=== PATIENT | female | born 2000 | race African-American/Black ===

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

== ENCOUNTER 2021-07-19 16:35 | Emergency (ER) | payer MEDICAID ==
[~2021-07-19] VITALS: Ht 162.6 cm; Wt 55.0 kg
[2021-07-19] MEDS ORDERED: SODIUM CHLORIDE 0.9% 1,000 ML IV ONE (16:45)
[2021-07-19] MEDS ORDERED: METOCLOPRAMIDE HCL 10MG/2ML VIAL IV STA (16:45)
[2021-07-19] MEDS ORDERED: KETOROLAC 30MG/ML VIAL IV STA (16:45)
[2021-07-19 16:58] VITALS: BP 130/70
[2021-07-19 17:30] LABS: BASOPHILS % 0.9 % (0.0-2.0); EOSINOPHILS % 10.1 % (0.0-5.0); HEMATOCRIT. 37.6 % (36.0-48.0); HEMOGLOBIN. 11.8 g/dL (12.0-16.0); LYMPHOCYTES % 46.8 % (20.0-50.0); MEAN CORPUSCULAR HEMOGLOBIN 26.3 pg (28.0-32.0); MEAN PLATELET VOLUME 9.3 fl (7.4-10.4); MONOCYTES % 12.4 % (2.0-8.0); NEUTROPHILS % 29.8 % (40.0-76.0); PLATELET 245 x1000/uL (130-400); RED BLOOD CELL COUNT 4.48 mill/uL (4.2-5.4); RED CELL DISTRIBUTION WIDTH 13.8 % (11.6-14.6)
[2021-07-19 17:36] LABS: CHLORIDE 104 mEq/L (98-107)
[2021-07-19 17:45] LABS: HCG SCREEN NEGATIVE
[2021-07-19 18:02] LABS: CLARITY URINE CLOUDY (CLEAR); COLOR URINE ORANGE (YELLOW); KETONES URINE NEGATIVE (NEGATIVE); LEUKOCYTE ESTERASE URINE 1+ (NEGATIVE); NITRITE URINE POSITIVE (NEGATIVE); OCCULT BLOOD URINE 1+ (NEGATIVE); PH URINE 6.5 (4.5-8.0); PROTEIN URINE 3+ (NEGATIVE); SPECIFIC GRAVITY URINE 1.024 (1.005-1.030)
[2021-07-19] MEDS ORDERED: IOHEXOL-300 100 ML BOTTLE ONE (19:04)
== END 2021-07-19 20:05 | disposition home or self-care (01) ==
LOC: ER 16:35
DX: N39.0 Urinary tract infection, site not specified (principal); Z87.442 Personal history of urinary calculi
CPT/HCPCS: 36415; 74177; 76830; 76856; 80053; 81003; 83690; 84703; 85025; 96374; 96375; 99285; J1885; J2765; J7030; Q9967

== ENCOUNTER 2021-07-30 14:12 | Emergency (ER) | payer MEDICAID, OTHER ==
[~2021-07-30] VITALS: Ht 162.6 cm; Wt 53.0 kg
[2021-07-30 14:46] LABS: BASOPHILS % 1.3 % (0.0-2.0); EOSINOPHILS % 9.8 % (0.0-5.0); HEMATOCRIT. 35.9 % (36.0-48.0); HEMOGLOBIN. 11.6 g/dL (12.0-16.0); LYMPHOCYTES % 34.1 % (20.0-50.0); MEAN CORPUSCULAR HEMOGLOBIN 26.9 pg (28.0-32.0); MEAN CORPUSCULAR VOLUME 83.2 fL (81.0-99.0); MEAN PLATELET VOLUME 9.2 fl (7.4-10.4); MONOCYTES % 13.5 % (2.0-8.0); NEUTROPHILS % 41.3 % (40.0-76.0); PLATELET 310 x1000/uL (130-400); RED BLOOD CELL COUNT 4.31 mill/uL (4.2-5.4); RED CELL DISTRIBUTION WIDTH 14.6 % (11.6-14.6)
[2021-07-30 14:54] LABS: CHLORIDE 107 mEq/L (98-107)
[2021-07-30 15:19] LABS: CLARITY URINE CLEAR (CLEAR); COLOR URINE YELLOW (YELLOW); KETONES URINE NEGATIVE (NEGATIVE); LEUKOCYTE ESTERASE URINE NEGATIVE (NEGATIVE); NITRITE URINE NEGATIVE (NEGATIVE); OCCULT BLOOD URINE NEGATIVE (NEGATIVE); PH URINE 7.5 (4.5-8.0); PROTEIN URINE NEGATIVE (NEGATIVE); UROBILINOGEN URINE 0.2 E.U./dL (0.2-1.0)
[2021-07-30] MEDS ORDERED: MAGNESIUM/ALUMINUM HYDROXIDE/SIMETHICONE 30ML UDC PO ONE (17:15)
[2021-07-30] MEDS ORDERED: FAMOTIDINE 20MG/2ML VIAL IV ONE (17:15)
[2021-07-30] MEDS ORDERED: ONDANSETRON HCL 4MG/2ML INJ IV ONE (17:15)
[2021-07-30] MEDS ORDERED: KETOROLAC 15MG/ML VIAL IV ONE (17:15)
[2021-07-30] MEDS ORDERED: NA P133E4 RC (18:33)
[2021-07-30] MEDS ORDERED: DOCU240C26 MT (18:33)
[2021-07-30] MEDS ORDERED: SENN8.6T21 MT (18:33)
[2021-07-30 19:51] VITALS: BP 136/76
== END 2021-07-30 19:53 | disposition home or self-care (01) ==
LOC: ER 14:12
DX: K59.00 Constipation, unspecified (principal); D53.9 Nutritional anemia, unspecified; F12.10 Cannabis abuse, uncomplicated
CPT/HCPCS: 36415; 74018; 76830; 76856; 76857; 80053; 81003; 81025; 85025; 96374; 96375; 99285; J1885; J2405; J3490

== ENCOUNTER 2021-08-10 03:36 | Emergency (ER) | payer OTHER ==
[~2021-08-10] VITALS: Ht 165.1 cm; Wt 47.0 kg
[~2021-08-10 03:36] MED LIST changes: +DOCU240C26 MT; +NA P133E4 RC; +SENN8.6T21 MT
[2021-08-10 03:54] VITALS: BP 115/75
[2021-08-10 05:38] LABS: CLARITY URINE TURBID (CLEAR); COLOR URINE YELLOW (YELLOW); KETONES URINE NEGATIVE (NEGATIVE); LEUKOCYTE ESTERASE URINE 1+ (NEGATIVE); NITRITE URINE NEGATIVE (NEGATIVE); OCCULT BLOOD URINE NEGATIVE (NEGATIVE); PH URINE 7.5 (4.5-8.0); PROTEIN URINE NEGATIVE (NEGATIVE); SPECIFIC GRAVITY URINE 1.014 (1.005-1.030); UROBILINOGEN URINE 0.2 E.U./dL (0.2-1.0)
[2021-08-10] MEDS ORDERED: IBUPROFEN 600MG TABLET PO ONE (06:45)
[2021-08-10 07:17] LABS: BASOPHILS % 0.4 % (0.0-2.0); EOSINOPHILS % 7.2 % (0.0-5.0); HEMATOCRIT. 35.3 % (36.0-48.0); HEMOGLOBIN. 11.3 g/dL (12.0-16.0); LYMPHOCYTES % 15.3 % (20.0-50.0); MEAN CORPUSCULAR HEMOGLOBIN 26.7 pg (28.0-32.0); MEAN CORPUSCULAR VOLUME 83.2 fL (81.0-99.0); MEAN PLATELET VOLUME 9.3 fl (7.4-10.4); MONOCYTES % 10.9 % (2.0-8.0); NEUTROPHILS % 66.2 % (40.0-76.0); PLATELET 226 x1000/uL (130-400); RED BLOOD CELL COUNT 4.24 mill/uL (4.2-5.4); RED CELL DISTRIBUTION WIDTH 14.2 % (11.6-14.6)
[2021-08-10 07:25] LABS: CHLORIDE 105 mEq/L (98-107)
[2021-08-10] MEDS ORDERED: IBUP-2029 MT (09:03)
[2021-08-10] MEDS ORDERED: CEPH500C2 MT (09:03)
== END 2021-08-10 09:28 | disposition home or self-care (01) ==
LOC: ER 03:36
DX: N13.2 Hydronephrosis with renal and ureteral calculous obstruction (principal)
CPT/HCPCS: 36415; 74176; 80053; 81003; 81025; 85025; 99284